=== PATIENT | female | born 1950 | race Caucasian/White ===

== ENCOUNTER 2018-06-07 13:45 | Day surgery (SDC) | payer OTHER, SELFPAY ==
[2018-05-26 16:17] VITALS: BMI 22.9
[2018-06-07] VITALS (12 sets, daily range): BP systolic 145–189; BP diastolic 72–98; PULSE 75–110; RESP 10–18; TEMP 36.4–37.3; O2SAT 95–100; BMI 22.9
--- NOTE | 2018-06-07 | DI.RAD.S_ITS ---
PROCEDURE: XR LUMBAR SPINE 2-3V INDICATIONS: L3-4, L4-5 MICRODISCECTOMY TECHNIQUE: 2 intraoperative fluoroscopic views of the lumbar spine were acquired. COMPARISON: None. FINDINGS: Intraoperative fluoroscopic images of lower lumbar spine shows surgical instrument placed posteriorly at L3-4 and L4-5 levels. IMPRESSION: Fluoroscopy guidance was provided intraoperatively for L3-4 and L4-5 microdiscectomy. Dictated by: Jovon Box M.D. on 06/07/2018 at 18:06 Approved by: Jovon Box M.D. on 06/07/2018 at 18:11
--- NOTE | 2018-06-07 16:03 | PM.PREOP ---
Pre-operative Note Interval Note Pre-op Check: Yes History & Physical Reviewed by Physician, Yes Exam Performed and Yes History & Physical exam performed today by Physician Changes: No
[2018-06-07] MEDS: LACTATED RINGERS 1,000 ML 42 ML IV (16:15)
--- NOTE | 2018-06-07 16:31 | SUR.PREOP ---
ancef 2 grams not given as ordered, 1 gram to be given per verbal order dr. pizano
[2018-06-07] MEDS: CEFAZOLIN 1 GM VIAL IV (16:43)
--- NOTE | 2018-06-07 17:05 | SUR.OPER ---
Prone on spine table, head in foam head support, padded chest and pelvic supports, gel pad at knees, lower legs supported by pillows; nipples, genitalia and toes free of pressure, arms secured on foam padded arm boards at <90 degrees abduction. Tape over blanket at thigh secured to table.
[2018-06-07] MEDS: BUPIVACAINE 0.25% W/ EPI VIAL 50 ML INJ (17:16)
[2018-06-07] MEDS: methylPREDNISolone acet DEPO 40 MG/ML VIAL INJ (17:17)
--- NOTE | 2018-06-07 17:42 | P.OP_ITS ---
Operative Date/Time/Diagnoses Date of procedure: 06/07/18 Time of procedure: 16:19 Pre-op diagnosis: 1. L3-4, L4-5 spinal stenosis 2. L3-4, L4-5 spondylosis with radiculopathy Post-op diagnosis: same Procedure & Clinicians Procedure: 1. L3-4 laminectomy with partial facetcomies 2. L4-5 hemilaminectomy 3. Utilization of microsurgical technique and operating microscope Same procedure as scheduled: Yes Indications: Patient has been having chronic back pain and worsening lumbar radiculopathy. Patient failed multiple conservative management with worsening pain weakness and numbness in her lower extremity. Patient has been having difficulty performing activity of daily living. After discussing risks benefits of treatment options, patient elected proceed with surgery. Surgeon: Sheng Harman [employer] Manager: Christina Pal Click Yes if Unassisted: No Anesthesia Type: General Operative Notes Closure Type: primary Specimen(s): none sent Estimated Blood Loss (mL): 5 Blood products transfused: none Procedure in detail: Patient was seen in the preoperative area. Risks and benefits of the surgery was discussed with the patient. Informed consent was obtained from the patient and placed in the chart. Surgical site was marked. Patient was taken to the operative room. General anesthesia was administered. Prophylactic antibiotic was given to the patient less than 30 min before the incision was made. Patient was placed into a prone position on the Janes table. Patient's back was then prepped and draped in the sterile fashion. Time- out was performed at this time. Using AP and lateral C-arm imaging the interval between L3-4 L4-5 was identified and marked on patient's back. A 1 inch incision 1 in from midline was made on the left side. The fascia was incised in line with skin incision. Globus MARS retractors was placed inside the incision and docked onto the L3 lamina. Using microsurgical technique and operating microscope, a L3-4 laminectomy was performed using a Kerrison rongeur. Liagamentum flavum was resected at the site of the laminectomy. Either side of the dura was exposed. Bilateral partial facetcomies was performed to further decompress the lateral recess. The MARS retractor was redirected to the L4 lamina. Using microsurgical technique and operating microscope, a L4 hemilaminectomy was performed on the left side using Kerrison rongeur. The lateral recess and neural foramen was fully decompressed by removing scar tissue bone spur and ligamentum flavum. After the laminectomy and hemilaminectomy was completed, the area medial lateral superior and inferior to the area of the laminectomy was inspected and explored using a micro curette. No other impinging structure was identified. The wound was then irrigated with sterile normal saline. 40 mg Depo-Medrol was placed into the epidural space. The deep fascia was closed with 1-0 Vicryl. The subcutaneous tissue was closed with 2-0 Vicryl. The skin was closed with 4- 0 Monocryl. Patient tolerated the procedure well. There were no complications. Patient was transferred recovery room in stable condition. Complications: none Condition: stable Disposition: same day surgery Plan for aftercare: Discharge to home
[2018-06-07] MEDS: LABETALOL 20 MG/4 ML SYRINGE 5 MG IV ×2 (17:45→17:55)
--- NOTE | 2018-06-07 18:04 | SUR.PHASEI ---
patient anxious because of her restless leg twitching. will ask anethesia for anxiety med. she has had 2 doses of labetolol and BP still high 188/96. HR has come down [id number] to [id number].
== END 2018-06-07 19:06 | disposition home or self-care (01) ==
PROVIDERS: Family Provider Family Medicine; PCP Family Medicine; Visit Provider Orthopaedic Surgery Orthopaedic Surgery of the Spine
PROC: (CPT 63047; principal; 2018-06-07 15:45)
DX: M48.061 Spinal stenosis, lumbar region without neurogenic claudication (principal); M47.26 Other spondylosis with radiculopathy, lumbar region; M19.90 Unspecified osteoarthritis, unspecified site; I10 Essential (primary) hypertension; E78.5 Hyperlipidemia, unspecified; D64.9 Anemia, unspecified; Z87.891 Personal history of nicotine dependence; E87.1 Hypo-osmolality and hyponatremia
CPT/HCPCS: 63047; 63030; 72100; 76001; J0330; J0690; J1030; J1100; J2405; J2704; J3010

== ENCOUNTER 2018-08-30 10:12 | Inpatient (IN) | payer OTHER, SELFPAY ==
[2018-08-16 09:30] VITALS: BMI 22.4
[2018-08-30] VITALS (15 sets, daily range): BP systolic 90–178; BP diastolic 51–90; PULSE 64–88; RESP 10–20; TEMP 36.2–36.7; O2SAT 95–100; BMI 22.4
--- NOTE | 2018-08-30 06:00 | DI.RAD.S_ITS ---
PROCEDURE: XR SHOULDER RT MIN 2V INDICATIONS: prosthesis placement TECHNIQUE: Single frontal view of the shoulder was acquired. COMPARISON: [facility] [place], CR, XR SHOULDER MIN 2VW RT, 06/04/2016, 14:32. FINDINGS: Bones: No fractures or dislocations, and there has been placement of a right total shoulder arthroplasty with surgical drain overlying the operative bed. No suspicious bony lesions. Visualized ribs appear intact. Soft tissues: No suspicious soft tissue calcifications. IMPRESSION: Normal alignment after right total shoulder arthroplasty, no operative complication present. Dictated by: Rafy Rodriguez M.D. on 08/30/2018 at 15:18 Approved by: Rafy Rodriguez M.D. on 08/30/2018 at 15:19
[2018-08-30] MEDS: LACTATED RINGERS 1,000 ML 42 ML IV ×2 (10:57→14:31)
[2018-08-30] MEDS: ACETAMINOPHEN 325 MG TABLET 975 MG PO ×3 (11:03→20:33)
[2018-08-30] MEDS: PREGABALIN 75 MG CAPSULE PO (11:04)
--- NOTE | 2018-08-30 11:54 | PM.PREOP ---
Pre-operative Note Interval Note History & Physical reviewed/Exam performed by Physician: Yes Changes to H&P: No
--- NOTE | 2018-08-30 11:54 | SUR.PREOP ---
Block start time [1147 . Monitoring initiated and maintained throughout procedure. Oxygen and medications given per anesthesiologist instructions. Patient remained stable throughout procedure, no adverse reactions noted. Block end time [1152].
--- NOTE | 2018-08-30 11:55 | SUR.PREOP ---
pt has abrasion on left knee, dr hernandez looked at abrasion stated ok to proceed with surgery , bandaid on left knee
[2018-08-30] MEDS: CEFAZOLIN 1 GM/50 ML FROZ.PIGGY IV (12:05)
--- NOTE | 2018-08-30 12:08 | PM.OP.1 ---
Operative Date/Time/Diagnoses Date of procedure: 08/30/18 Time of procedure: 13:50 Pre-op diagnosis: Right shoulder rotator cuff arthropathy Post-op diagnosis: same Procedure & Clinicians Procedure: Right reverse total shoulder replacement Same procedure as scheduled: Yes Indications: The patient is had chronic right shoulder pain unresponsive to nonoperative therapies. Radiographic studies have revealed changes consistent with a massive rotator cuff tear and arthritis. They have elected to proceed with reverse total shoulder replacement after discussion of the risks benefits and alternatives. Risks discussed included but were not limited to: Failure to improve, instability, infection, nerve damage, deep venous thrombosis, pulmonary embolism, stroke, coma, myocardial infarction and . Surgeon: Chuy Lopez Concrete Wall Grinder Operator: Julio Cesar Sun Click Yes if Unassisted: No Anesthesia Type: General, Peripheral nerve block and Local Operative Notes Findings: Massive tear of the supraspinatus and infraspinatus tendons with superior subluxation of the humeral head. Intact subscapularis. Closure Type: primary Specimen(s): none sent Implants & Drains: Implants used in this procedure were manufactured by the [employer] and included an RSP reverse total shoulder system with a size 10 mm standard length humeral stem, a 32 mm +4 standard humeral socket insert, a standard 30 mm screw length RSP glenoid base plate, a 32 mm neutral glenoid head with retaining screw, and 4 locking screws measuring 18, 22, 14 and 14 mm in length. Applied: drain(s) and implant(s) Estimated Blood Loss (mL): 200 Blood products transfused: none Procedure in detail: The patient was seen in the preoperative area where they identified the right shoulder as the operative site and this was marked with my initials. He received preoperative antibiotics and underwent the induction of an interscalene block. They were taken to the operating room and placed on the operating room table in a supine position with the underwent the induction of a general anesthetic. There were then repositioned in the ?beach chair? position using a dedicated positioner. All pressure points were well padded. The knees were slightly bent to prevent tension on the sciatic nerves. The right arm was prepared from the fingertips to the base of the neck with ChloraPrep in the usual fashion and draped through sterile drapes. An approximately 15 cm incision was created starting at the clavicle just above the coracoid and going to the deltoid insertion. The deltopectoral interval was used to access the shoulder taking the vein to the medial side. The vein was protected throughout the case. The upper 1 cm of the pectoralis major was released. The biceps tendon was identified and used as a guide to releasing the remaining subscapularis. The biceps itself was tenodesed over the pectoralis tendon using a suture. The subscapularis was tagged for later repair. The shoulder was dislocated and a proximal humeral osteotomy performed using an extramedullary guide. A proximal humeral protector was then placed. Retractors were placed access the glenoid. A 360 degree release was performed of the remaining subscapularis with care being taken to protect the axillary nerve. The soft tissues were removed circumferentially around the glenoid. The guide was used to drill the guide hole in the center of the inferior glenoid. The tap was placed and used as a guide for the reamer. The tap was then removed and the glenoid base plate inserted. The peripheral locking screws were then placed through the appropriate guide. A trial glenoid head was applied. We then turned our attention to the humerus. The proximal humeral protector was removed. Cylindrical reamers were used to size the canal. Broaching was then performed beginning with a small broach and working up until a line to line fit with the reamer was obtained. The guide for the proximal metaphyseal reamer was then applied and the metaphysis was reamed appropriately. The trial metaphyseal portion of the body was then applied to the broach. Trial reductions were performed and the size of the glenoid head and the cup were optimized. Stability was checked in maximal internal and external rotation and range of motion was checked to allow access to the top of the head, internal rotation to an excess of 50? in the ?scarecrow position? and the ability to reach the groin. The appropriate final prosthetic components were then opened. The glenoid head was impacted into position and checked for rotational and axial stability before placing the set screw. Drill holes for repair of the subscapularis were performed and sutures placed. The humeral prosthetic was then impacted into position. The humeral cup was placed. The joint was relocated and irrigated. The subscapularis was repaired to the previously placed sutures. A deep drain was placed. The deltopectoral interval was reapproximated with 0 Vicryl. Subcutaneous layer was closed with interrupted 3-0 Vicryl and skin with a running 3 0 V lock suture. Subcutaneous tissues were then infiltrated with 0.5% Marcaine for postoperative pain control. An Aquacel Ag dressing was applied and the patient's arm was placed in a sling. The patient was then transferred to the recovery room in good condition having tolerated the procedure well. Complications: none Condition: stable Disposition: PACU Plan for aftercare: The patient will be maintained in a sling for the 1st 6 weeks postoperatively. She will be allowed to do pendulum exercises but no other physical therapy.
--- NOTE | 2018-08-30 12:40 | SUR.OPER ---
Beach chair with Wai/Geraldo shoulder positioner. Lower body on padded OR bed. Head in foam padded head cradle, secured with straps. Non-operative arm secured <90 degrees abduction. Pillow under knees. Safety belt at thigh. Cloth tape over blanket over lower legs.
--- NOTE | 2018-08-30 13:37 | PM.PROC.1 ---
Procedures Date/Time Date of procedure: 08/30/18 Time of procedure: 11:39 General Procedure description: Ultrasound guided interscalene brachial plexus nerve block for post op pain control after right reverse total shoulder arthroplasty by Dr. Lopez. Risk and benefits of procedure discussed with patient. ASA monitoring applied to patient. O2 given via nasal cannula. 0.5 mg Versed and 25 mcg fentanyl given for procedural sedation. Skin site was prepped with chlorhexidine and allowed to fully dry. Sterile gloves, mask, hat and probe cover were used to maintain sterility. 2% lidocaine and 30ga needle was used to make a small skin wheal at needle insertion site. Under ultrasound guidance, a 21ga 50mm Pajunk needle was directed into the interscalene groove (middle/anterior scalenes) near the brachial plexus. Patient reported no parasthesias. After negative aspiration, 20 mL 0.5% ropivicaine and 10mg dexamethasone were injected around brachial plexus. Patient tolerated procedure well.
--- NOTE | 2018-08-30 13:40 | P.PCN_ITS ---
Procedures Date/Time Date of procedure: 08/30/18 Time of procedure: 11:39 General Procedure description: Ultrasound guided interscalene brachial plexus nerve block for post op pain control after right reverse total shoulder arthroplasty by Dr. Lopez. Risk and benefits of procedure discussed with patient. ASA monitoring applied to patient. O2 given via nasal cannula. 0.5 mg Versed and 25 mcg fentanyl given for procedural sedation. Skin site was prepped with chlorhexidine and allowed to fully dry. Sterile gloves, mask, hat and probe cover were used to maintain sterility. 2% lidocaine and 30ga needle was used to make a small skin wheal at needle insertion site. Under ultrasound guidance, a 21ga 50mm Pajunk needle was directed into the interscalene groove (middle/ anterior scalenes) near the brachial plexus. Patient reported no parasthesias. After negative aspiration, 20 mL 0.5% ropivicaine and 10mg dexamethasone were injected around brachial plexus. Patient tolerated procedure well.
[2018-08-30] MEDS: BUPIVACAINE 0.5% W/ EPI (PF) VIAL 30 ML INJ (13:50)
--- NOTE | 2018-08-30 14:26 | SUR.PHASEI ---
Report given to Bernardino POWELL and Nirmala RN regarding this pt.
--- NOTE | 2018-08-30 15:52 | SUR.PHASEI ---
Patient transported to room 205 via patient bed. Report given to Alisa Cline RN. Vital signs stable. Dressings intact. No complaints of pain. Tolerating PO without nausea or vomiting. Pt. Stable.
--- NOTE | 2018-08-30 16:18 | PC.NURSE ---
Charito shift note: Patient returned from PACU, awake, alert and calm. No c/o pain, discomfort or nausea. Tolerating PO intake. CMS intact to RUE. RUE secured with sling, anterior shoulder aquacel CDI, ice pack in place. Updated regarding post op plan of care. Call light within reach.
[2018-08-30] MEDS: LACTATED RINGERS 1,000 ML 125 ML IV (16:36)
[2018-08-30] MEDS: ROPINIROLE 0.25 MG TABLET 0.5 MG PO ×2 (16:37→20:37)
[2018-08-30] MEDS: CEFAZOLIN 2 GM/100 ML FROZ.PIGGY IV (20:05)
[2018-08-30] MEDS: ASPIRIN EC 81 MG TABLET PO (20:34)
[2018-08-30] MEDS: DOCUSATE 100 MG CAPSULE PO (20:34)
[2018-08-31] MEDS: NAPROXEN 250 MG TABLET 500 MG PO ×2 (02:14→10:53)
[2018-08-31] MEDS: HYDROMORPHONE 0.5 MG INJ IV (02:33)
[2018-08-31] MEDS: CEFAZOLIN 2 GM/100 ML FROZ.PIGGY IV (04:11)
[2018-08-31 04:41] VITALS: BP 133/62; PULSE 72; RESP 18; TEMP 36.6; O2SAT 97
[2018-08-31] MEDS: PANTOPRAZOLE 20 MG TABLET PO (05:56)
[2018-08-31 07:03] LABS: Hematocrit 30.8 % (36-46); Hemoglobin 10.5 g/dL (12.0-16.0); Mean Corpuscular HGB Conc 34.1 % (30-36); Mean Corpuscular Hemoglobin 31.8 PG (26-34); Mean Corpuscular Volume 93.2 fL (80-100); Platelet Count 411 X10^3/uL (150-400); Red Blood Cell Count 3.31 X10^6/uL (4.0-5.2); Red Cell Distribution Width 12.6 % (11.6-14.8); White Blood Cell Count 12.6 X10^3/uL (4.5-11.0)
[2018-08-31 07:47] VITALS: BP 143/74; PULSE 66; RESP 18; TEMP 36.7; O2SAT 98
--- NOTE | 2018-08-31 07:52 | PM.DS.1 ---
History of Present Illness Date Patient Seen: 08/31/18 Time Patient Seen: 07:52 Chief complaint: 35821 Shoulder Arthroplasty Narrative: History and physical is contained in the chart previously completed note. Please refer to this note for this information. Discharge Providers Date of admission: 08/30/18 10:12 Primary care physician: Salvatore Sahu MD Consults: 08/30/18 15:55 Consult to Discharge Planning Routine Comment: Consult to Physical Therapy Evaluate & Treat Comment: Physician Instructions: Evaluate and Treat Discharge provider: Chuy Lopez MD Discharge Date: 08/31/18 Summary Discharge Diagnosis: 1. Right shoulder rotator cuff tear arthropathy 2. Acute post hemorrhagic anemia Hospital Course: The patient was admitted to the hospital and taken directly to the operating room August 30, 2018 where she underwent a right reverse total shoulder replacement without complication. She was felt to be stable for discharge on postoperative day 1. Status at Discharge Cognitive/behavioral status at discharge: Baseline Functional status at discharge: independent ambulation Overall status at discharge: patient is progressing back to baseline Time Spent with Patient Less than 30 minutes Exam Vital Signs (past 8 hours): - 08/31/18 04:41 08/31/18 07:47 Temperature 97.9 F 98.1 F Pulse Rate 72 66 Respiratory Rate 18 18 Blood Pressure 133/62 143/74 H Pulse Oximetry 97 98 Oxygen Delivery Method Room Air Oxygen Flow Rate 0 Narrative Exam Narrative: Right shoulder wound is dressed with no drainage on the bandage. Light touch is intact in the radial, ulnar, median, muscular cutaneous and axillary nerve distribution. She can extend her thumb, abduct her thumb, abduct her fingers and is able to fire her biceps and deltoid. Objective Labs Result Diagrams: 08/31/18 06:45 Labs: Laboratory Results - last 24 hr 08/31/18 06:45 WBC 12.6 H RBC 3.31 L Hgb 10.5 L Hct 30.8 L MCV 93.2 MCH 31.8 MCHC 34.1 RDW 12.6 Plt Count 411 H Discharge Plan Discharge Plan Patient Disposition: Home Discharge Med Rec/Prescriptions Prescriptions: New hydrocodone-acetaminophen 5-325 mg Tablet 1 tab PO Q4HR PRN (Reason: Pain, Moderate (4-6)) Qty: 40 RF: 0 Continue multivitamin Tablet 1 tab PO DAILY RF: 0 tolterodine 2 mg Capsule,Extended Release 24hr 2 mg PO DAILY RF: 0 lovastatin 40 mg Tablet 40 mg PO DAILY RF: 0 chlorthalidone 50 mg Tablet 1 tab PO DAILY RF: 0 conjugated estrogens 0.625 mg/gram Cream See Label Instructions .ROUTE .COMPLEX Qty: 0 RF: 0 magnesium 250 mg Tablet 250 mg PO DAILY Qty: 0 RF: 0 calcium carbonate-vitamin D3 600 mg(1,500mg) -400 unit Tablet 1 tab PO DAILY RF: 0 naproxen 500 mg Tablet 500 mg PO BID PRN (Reason: pain) RF: 0 cyclobenzaprine 10 mg Tablet 5 - 10 mg PO TID PRN (Reason: Neck stiffness) RF: 0 ferrous sulfate 325 mg (65 mg iron) Tablet 325 mg PO DAILY RF: 0 cranberry 400 mg Capsule PO DAILY RF: 0 cholecalciferol (vitamin D3) [Vitamin D3] 2,000 unit Capsule 2,000 unit PO DAILY RF: 0 krill oil 500 mg Capsule 500 mg PO DAILY RF: 0 ropinirole 0.5 mg Tablet 0.5 mg PO TID RF: 0 omeprazole 20 mg Capsule,Delayed Release(Dr/Ec) 20 mg PO DAILY RF: 0 turmeric 400 mg Capsule 1,000 mg PO DAILY RF: 0 lisinopril 10 mg Tablet 10 mg PO DAILY RF: 0 Follow up/Referrals: Chuy Lopez MD [Physician] - 2 Weeks Provider Discharge Instructions Diet: Diet as Tolerated Activity: Wear sling for 6 weeks. You may do pendulum exercises and use your hand in front of your torso. Cold/Heat Therapy: Apply ice for 15 min of every hour to right shoulder as needed. Skin/Wound/Dressing Care Report to your healthcare provider any signs of infection, such as:: chills, fever, night sweats, increased pain, unusual drainage and unusual redness Dressing: Nikolas or dressing intact until follow-up. You may shower with the dressing in place but do not immerse the dressing under water. If the central strip of the dressing becomes saturated with either water or blood call the office to have it changed. Discharge Data Primary Care Provider: Salvatore Sahu Attending Provider: Chuy Lopez Admit Date/Time: 08/30/18 10:12
[2018-08-31] MEDS: HYDROCODONE/ACET 5/325 TABLET 1 TAB PO (08:00)
[2018-08-31] MEDS: CHOLECALCIFEROL (VITAMIN D3) 1,000 UNIT TABLET 2000 UNIT PO (08:01)
[2018-08-31] MEDS: ASPIRIN EC 81 MG TABLET PO (08:01)
[2018-08-31] MEDS: FERROUS SULFATE 325 MG TABLET PO (08:02)
[2018-08-31] MEDS: DOCUSATE 100 MG CAPSULE PO (08:02)
[2018-08-31] MEDS: LISINOPRIL 10 MG TABLET PO (08:02)
[2018-08-31] MEDS: CHLORTHALIDONE 25 MG TABLET 50 MG PO (08:02)
[2018-08-31] MEDS: MULTIVITAMIN 1 TABLET 1 TAB PO (08:03)
[2018-08-31] MEDS: LOVASTATIN 20 MG TABLET 40 MG PO (08:03)
[2018-08-31] MEDS: POLYETHYLENE GLYCOL 3350 17 GM POWD.PACK PO (08:04)
[2018-08-31] MEDS: ROPINIROLE 0.25 MG TABLET 0.5 MG PO (08:04)
--- NOTE | 2018-08-31 09:40 | PT.IIE ---
Current Diagnoses Other specific arthropathies, not elsewhere classified, right shoulder (08/30/18) Surgery Performed Operation Date: 08/30/18 12:00 Actual Procedures p Total Shoulder Arthroplasty - Reverse(Right) - Chuy Lopez MD Surgical History (Last Updated 08/16/18 @ 11:14 by Carla Sneed, RN) H/O excision of ganglion cyst (Acute) History of appendectomy (Acute) History of bilateral tubal ligation (Acute) History of colonoscopy (Acute ~2016) History of colonoscopy with polypectomy (Acute) History of esophagogastroduodenoscopy (EGD) (Acute) History of laminectomy (Acute) History of tonsillectomy (Acute) S/P left rotator cuff repair (Acute) Medical History (Last Updated 08/16/18 @ 12:04 by Carla Sneed, RN) Abnormal EKG (Acute ~05/27/18) Anemia (Acute) Barretts esophagus (Acute) Basal cell carcinoma (Acute) Blunt head trauma (Acute ~03/31/18) Calcifying tendinitis of shoulder (Acute) GERD (gastroesophageal reflux disease) (Acute) History of hysterectomy (Acute) Hyperlipidemia (Acute) Hypertension (Acute) Hyponatremia (Acute) Impacted cerumen (Acute) Joint pain (Acute) Myofascial pain dysfunction syndrome (Acute) Osteoarthritis (Acute) Osteoarthritis of spine with radiculopathy, lumbar region (Acute) Osteopenia (Acute) Postoperative intra-abdominal abscess (Acute ~1996) Restless leg syndrome (Acute) Rheumatic fever (Acute ~1952) Rotator cuff arthropathy of right shoulder (Acute) Sacral fracture (Acute) Seasonal allergies (Acute) Spinal stenosis (Acute) Spondylosis (Acute) Vertigo (Acute ~08/13/18) Physical Therapy Inpatient Evaluation/Re-Eval M1 PT/OT-IP Prior Functional Status Start: 08/31/18 10:14 Freq: NEEDED Status: Active Protocol: Document 08/31/18 09:40 AB (Rec: 08/31/18 10:31 AB [id number]) Medical Review Prior Functional Status Medical History Reviewed Yes Communication able to make needs known Mobility and Gait stated that she is independent with all mobilities and ambulation without AD Social History Household Members none Living Arrangements House Number of Floors (Floors) One Floor Number of Stairs To Enter/Railing? no steps to enter; lives in a senior 55[facility]community Home Environment High Toilet Walk in Shower Built-In Shower Seat Home Equipment Hand Held Shower Grab Bars Near Toilet Grab Bars In Shower Additional Social History Comment stated that her aunt lives 2 houses away and can assist her if needed stated that she usually sleeps with head elevated by pillows M2 PT-IP Current Condition Start: 08/31/18 10:14 Freq: NEEDED Status: Active Protocol: Document 08/31/18 09:40 AB (Rec: 08/31/18 10:31 AB [id number]) Physical Therapy Current Condition Current Condition Evaluation Date 08/31/18 Treatment Diagnosis s/p R reverse TSA; difficulty in walking Onset Date 08/30/18 Precautions Shoulder Precautions Sling Internal Rotation to Body No External Rotation No Abduction Forward Flexion to 90 degrees Pendulums Brace sling Other Precautions per doctor's order: allowed to do pendulums but no other exercises on R shoulder Weight Bearing Status Weight Bearing Status Non-Weight Bearing Allowed Weight Bearing Amount (enter % RUE NWB or #) (%) M3 PT-IP Subjective Start: 08/31/18 10:14 Freq: NEEDED Status: Active Protocol: Document 08/31/18 09:40 AB (Rec: 08/31/18 10:31 AB [id number]) Subjective Physical Therapy Visit Type Type Initial Evaluation Visit Start Time 09:40 Visit Stop Time 10:10 Total Visit Minutes 30 Number of ENTRY LEVEL RECRUITER Visits 0 Physical Therapy Visit Comments Patient Comments pt agreeable to do PT Therapy Pain Assessment Pain When Pain Assessed At Rest Pain Present Pain Present Pain Reported Location Right Shoulder Intensity 5 Scale Used Numeric (1 - 10) Pain Management Techniques Re-positioning Timing of Activity with Medications M4 PT-IP Mobility and Gait Start: 08/31/18 10:14 Freq: NEEDED Status: Active Protocol: Document 08/31/18 09:40 AB (Rec: 08/31/18 10:31 AB [id number]) PT-Bed Mobility Assessment Supine to Sit Supine to Sit Independent Head of Bed Elevated PT-Transfer Assessment Sit to and From Stand Sit to and from Stand Independent Equipment Transfer Assistive Device None Gait Belt Orthotic/Prosthetic Devices or Brace: Yes Transfers Transfer Destination Toilet Transfer Technique pt ambulated to the toilet without AD Transfer Ability Level of Assist Standby Assistance Gait Assessment Gait Gait Assistance Required: Standby Assistance Distance (Feet) 200 Able to Maintain Weight Bearing Status Yes During Gait Assistive Devices Assistive Device None Gait Belt Orthotic/Prosthetic Devices or Brace: Yes Gait Deviations General Gait Pattern Antalgic Decreased Stride Length Decreased Feet Clearance Factors Limiting Gait Function Factors Limiting Gait Function Decreased Strength Limited Range of Motion Pain Comments Gait Comments has R sling on; presents with antalgic gait; pt stated that she has a bad hip PT-Balance Assessment Sitting Balance and Reactions Static Sitting Balance Ability Good Dynamic Sitting Balance Ability Good Standing Balance and Reactions Static Standing Balance Ability Good Dynamic Standing Balance Ability Fair Device Used without AD M5 PT-IP Objective Assessments Start: 08/31/18 10:14 Freq: NEEDED Status: Active Protocol: Document 08/31/18 09:40 AB (Rec: 08/31/18 10:31 AB [id number]) Orientation Orientation/Cognition Level of Alertness Alert Orientation Name Age Birthday Month Date Year Day of Week Place Situation Safety Awareness Understands Safety Issues Memory Description No Deficits Noted Gross Range of Motion Upper Extremity ROM Assessment Right Impaired Impairments RUE with precautions Lower Extremity ROM Assessment Within Functional Limits Strength Lower Extremity Strength Assessment Within Functional Limits Sensation Assessment Sensation Gross Sensation WNL Muscle Tone Muscle Tone WNL Yes M6 PT-IP Treatment Start: 08/31/18 10:14 Freq: NEEDED Status: Active Protocol: Document 08/31/18 09:40 AB (Rec: 08/31/18 10:31 AB [id number]) Physical Therapy Treatment Education Education Provided Precautions Weight Bearing Status Post-Op Packet Safety Brace Education Donning Patient Other Treatments Other Treatment Performed Pt education conducted for sling management attemped pendulum exercises but pt unable to fully relax RUE and educated on precautions; informed pt to just dangle RUE for ADLs but not do pendulums if unable to relax RUE; pt understood M7 PT-IP Assessment and Plan Start: 08/31/18 10:14 Freq: NEEDED Status: Active Protocol: Document 08/31/18 09:40 AB (Rec: 08/31/18 10:31 AB [id number]) PT Summary Assessment and Plan Potential Rehabilitation Potential Good Status of Condition at Evaluation Stable Summary Impairments Pain ROM Strength Balance Coordination Sensation Transfers Gait Activity Tolerance Assessment Summary pt requiring SBA with mobility . pt stated that her aunt can assist her if needed. Pt may go home when medically stable . Goals Transfer Goal Independent Gait Goal Independent Gait Distance 300 Days to Meet Goals 2 Frequency of Treatment Frequency Of Treatment Twice a Day Treatment Plan Physical Therapy Treatment Plan Bed Mobility Training Transfer Training Gait Training Therapeutic Exercise Balance Retraining Post Op Education Discharge Planning Hot or Cold Pack Neuromuscular Re-ed Coordination Retraining Manual Therapy Other Recommendations and Next Treatment ambulation Focus Recommendations To Nursing Amount of Assist Needed Standby Assistance Discharge Recommendations PT Discharge Recommendations Home with Assistance Outpatient PT
[2018-08-31] MEDS: CYCLOBENZAPRINE 10 MG TABLET 5 MG PO (10:54)
--- NOTE | 2018-08-31 11:17 | PC.NURSE ---
Discharge Pt states pain decreased with [place]. Did give pt naproxen and flexeril prior to d/c to help with pain for car ride home as well. PIV removed prior to d/c. d/c instructions provided to pt and family member. notified to contact MD with any additional questions or concerns as well as that she has f/u apt already scheduled. Hemovac removed without issue per MD orders. Pt had R arm in sling per MD orders. left in w/c to private vehicle for d/c.
--- NOTE | 2018-08-31 13:04 | CM.DANOTE ---
DCP/Assessment: Reviewed chart. Patient is a 68yr old female admitted to [facility] for right TSA performed on 08-30-[address] Lopez. PCP is Dr. Sahu. Primary payor is 1)[employer] [facility]. Met with patient explained CM/SW role. Patient reports that she plans to go home today. Patient denies any d/c planning needs. Patient was told by Orthopedics that she would not start outpatient therapy for a few weeks. F/U appointment with Orthopedics on 09-13-18. Patient reports that she has supportive family and neighbors nearby. Patient does not anticipate any d/c planning needs. P: Home today. TIMOTHY Bhatti Discharge Planning/Care Management Advanced directive, confirm from FAMILY Start: 08/30/18 16:32 Freq: Q24H Status: Discharge Protocol: Document 08/30/18 16:53 EM (Rec: 08/30/18 16:54 EM [id number]) Advance Directive, confirm on record Time 16:50 Person contacted Yosi Abraham Copy received Yes CM Discharge Assessment Start: 08/31/18 13:02 Freq: Status: Discharge Protocol: Document 08/31/18 13:02 KJS (Rec: 08/31/18 13:04 KJS [id number]) Discharge Planning Assessment Assigned Line Helper TIMOTHY Bhatti Contact Information Waleska Rosales (Aunt) Advance Directives? Yes Advance Directives on File Unsure History Provided By Patient Has Patient been admitted in last 30 No days? Prior Living Arrangements House Household Members none Type of transporation used prior to Drives own vehicle admit Independent with ADL's Yes Is patient alert and oriented? Yes Caregiver for Another No Barriers to Discharge No Discharge Plan Home Transportation Arrangement Family to provide transport. Referrals Initiated None needed Whiteboard Updated in Patient Room with Yes name and ext. # of Line Helper Review Status In Process Please Provide Date Initial DC 08/31/18 Assessment Was Performed Next Review Type Continued Stay Review Pre-Anesthesia Assessment Start: 08/16/18 09:30 Freq: Status: Discharge Protocol: Document 08/16/18 09:30 VLJ (Rec: 08/16/18 09:52 VLJ [id number]) Pre-Anesthesia Assessment Patient Also Known As (SANTA Abraham Patient Information Reviewed Via Chart Review Phone Assessment Assessment Completed With Patient Lab Results BMP/CMP CBC Primary Care Provider Salvatore Sahu Seen Specialist in Last 12 Months Yes Specialist Seen Emergency Orthopedist Primary Language Setswana Microsoft Access Developer Required No Height 162.56 cm Weight 59.421 kg Body Mass Index (BMI) 22.4 Hearing Ability Normal Visual Impairment No Limitations Dentition Type Teeth, Natural Present Barriers to Learning None Hx Anesthesia Reactions No Hx Family Anesthesia Reaction No Hx Malignant Hyperthermia No Hx Blood Transfusions No Hx Blood Transfusion Reaction No Anesthesia Review Requested No Multiple Drum Sander No alcohol intake current alcohol intake frequency 0-2 drinks per day Smoking Status Former smoker Tobacco type cigarettes Has it been 2 weeks or less since No patient quit smoking how long ago did patient quit smoking 1998 Smoking pack-years 8 Substance Use Type does not use Pain Present Pain Reported Comment Right shoulder Musculoskeletal Symptoms Arthralgias Joint Pain Joint Stiffness Joint Swelling History of Falling (Recent or History of Yes ) Patient is completely paralyzed or No completely immobile Ambulatory Aid None/bed rest/nurse assist Gait/Transferring Normal/bedrest/immobile Mental Status Oriented to own ability Comment Fell in shower Is patient on oxygen? No Does patient have HEART/SOB No Hx Sleep Apnea No CPAP/BIPAP use not prescribed Will Bring CPAP/BIPAP DOS No Currently Taking a Beta Edmundo No Can You Climb a Flight of Stairs Without Yes SOB Hx Chest Pain No Hx SOB No Hx Syncope or Dizziness Yes: ED work-up 08/13/18 negative Anti-Coagulant Therapy No Has a Research Greenhouse Supervisor No Cardiac Testing No Hx Pacemaker/ICD No Pacemaker Rep Required? No Cardiac Clearance Received Not Applicable Diet Type At Home Regular dysphagia No Bladder Pattern Frequency Nocturia Urgency Urinary Catheter Present No Hx Urinary Self Catheterization No Diabetes No Patient No Lactating No Hx Drug Resistant Organism No Presence of External or Internal Medical No Devices Have you traveled outside the [facility] in the last 30 days? Marital Status Single Lives With none Prior Living Arrangements House Number of Floors (Floors) One Floor Number of Stairs To Enter/Railing? no stairs Support System Family Sibling(s) Does the Patient Have Assistance After Yes Surgery Patient Discharge Plan Description Return Home Comment Aunt lives 2 door away; plans one night stay Feels Safe in Current Environment Yes Been Physically Hurt or Threatened By a No Person in Current Environment Do you have thoughts of harming yourself None or others? Are you currently considering suicide? No Do you have a plan to hurt yourself or No Plan others? Do You Have Any Spiritual Beliefs That No May Affect Your HC Choices? Do You Have Any Cultural Practices That No May Affect Your HC Choices? Spiritual Referral None Who Can We Speak to About Patient's Care Friends & Family Identifying Code for Release of Patient Declined Information Health Care Proxy/Next of Kin Waleska Rosales (Aunt) Health Care Proxy Emergency Contact Name Waleska Rosales (Aunt) Emergency Contact Advance Directives? Yes Advance Directives on File Unsure Requested Patient Bring Advanced Yes Directives DOS Power of Mill Tender Second Operator Yes Power of Mill Tender Second Operator Name Tremaine Rosales - brother Power of Mill Tender Second Operator PAC Instructions Assistance for 24 hours post- op Do not shave/clip surgical site Durable medical equipment Medications to take/avoid Nasal antibiotic No ETOH/petroleum product on skin DOS NPO Ortho class Post-op transportation Pre-op antibiotic Pre-surgical wash Sensory aids Sturdy shoes/comfortable clothes Do not bring valuables and remove jewelry
== END 2018-08-31 11:05 | disposition home or self-care (01) | DRG 483 ==
PROVIDERS: Admitting Provider Orthopaedic Surgery; Family Provider Family Medicine; PCP Family Medicine; Visit Provider Orthopaedic Surgery
PROC: 0RRJ00Z Replacement of Right Shoulder Joint with Reverse Ball and Socket Synthetic Substitute, Open Approach (ICD-10-PCS; CPT 23472; principal; 2018-08-30 12:00)
DX: M19.011 Primary osteoarthritis, right shoulder (principal); I10 Essential (primary) hypertension; K21.9 Gastro-esophageal reflux disease without esophagitis; E78.5 Hyperlipidemia, unspecified; Z87.891 Personal history of nicotine dependence; M75.101 Unspecified rotator cuff tear or rupture of right shoulder, not specified as traumatic; S43.001D Unspecified subluxation of right shoulder joint, subsequent encounter
CPT/HCPCS: 36415; 64450; 73020; 85027; 97161; C1776; J0690; J1100; J1170; J2250; J2405; J2704; J2795; J3010

== ENCOUNTER → 2019-05-20 15:41 | Outpatient (CLI) | payer OTHER, SELFPAY ==
[2018-08-30 16:26] VITALS: BMI 22.4
--- NOTE | 2019-05-20 | DI.MRI.S_ITS ---
PROCEDURE: MR THORACIC SPINE WO CON INDICATIONS: Decreased balance TECHNIQUE: Noncontrast sagittal T1 spine echo and T2 fast spin echo, sagittal STIR, axial T1 and T2 fast spin echo through the thoracic spine. COMPARISON: None. FINDINGS: Image quality: Excellent. Alignment and Curvature: There is normal bony alignment. Bone Marrow: Minimal reactive endplate change noted adjacent to the T6-T7, T7-T8, F7-K3-C0-T10, T10-T11, T11-T12 and T12-L1 disc. No acute vertebral body compression fractures. Spinal Cord: Visualized spinal cord is normal in size and signal. Paraspinous Soft Tissues: No paravertebral masses. Miscellaneous: Loss of disc signal noted throughout the thoracic spine. Loss of disc height noted in the T2-T3, TE 6-T7, T7-T8, T8-T9, T9-T10, T10-T11, T11-T12 and T12-L1 disc. Small central T10-T11 disc protrusion. No central stenosis. No neural foraminal narrowing. No neural compression. IMPRESSION: 1. Multilevel degenerative disc disease. 2. No central stenosis. 3. No neural foraminal narrowing. 4. No neural compression. 5. No vertebral body compression fractures. Dictated by: Sherri Shelton MD, PhD on 05/20/2019 at 17:08 Approved by: Sherri Shelton MD, PhD on 05/20/2019 at 17:11
--- NOTE | 2019-05-20 | DI.MRI.S_ITS ---
PROCEDURE: MR CERVICAL SPINE WO CON INDICATIONS: Decreased balance TECHNIQUE: Noncontrast sagittal T1 spin echo and T2 fast spin echo, sagittal STIR, foraminal oblique sagittal T2 fast spin echo, and axial gradient echo or T2 fast spin echo through the cervical spine. COMPARISON: None. FINDINGS: Image quality: Degraded by motion artifact in particular on the right side oblique T2 weighted pulse sequence.. Alignment and Curvature: Straightening of the normal lordotic curvature. Grade 1 anterolisthesis of C3 on C4 and C4 on C5. Grade 1 retrolisthesis of C5 on C6 Bone Marrow: Multilevel degenerative endplate sclerosis and spurring. Diffuse facet arthropathy. Spinal Cord: Visualized spinal cord has normal size and signal. No cerebellar tonsillar herniation. Paraspinous Soft Tissues: No paravertebral masses. Prevertebral soft tissues are normal in thickness. C2-C3: Normal appearance. C3-C4: No high-grade canal stenosis. Mild right foraminal narrowing with nerve root compression. Mild left foraminal narrowing without nerve root compression C4-C5: Minimal central canal narrowing. Mild to moderate right foraminal narrowing with minimal nerve root compression. Moderate left foraminal stenosis with nerve root compression C5-C6: Mild central canal narrowing with effacement of the anterior and posterior thecal sac. Severe right foraminal stenosis with nerve root compression. Severe left foraminal stenosis with neurocompression C6-C7: Mild central canal narrowing with effacement of the anterior and posterior thecal sac. Severe bilateral foraminal stenosis with nerve root compression C7-T1: No canal stenosis identified. No foraminal narrowing IMPRESSION: Diffuse cervical spondylosis and facet arthropathy as detailed above. Multilevel spondylolisthesis and retrolisthesis Mild central canal narrowing at C5-C6 and C6-C7. Diffuse bilateral foraminal stenoses, most severe at C5-C6 and C6-C7 bilaterally Dictated by: Everardo Schuster M.D. on 05/23/2019 at 8:40 Approved by: Everardo Schuster M.D. on 05/23/2019 at 8:46
== END ==
PROVIDERS: Family Provider Family Medicine; PCP Family Medicine; Visit Provider Psychiatry & Neurology Neurology
DX: M51.34 Other intervertebral disc degeneration, thoracic region (principal); R26.9 Unspecified abnormalities of gait and mobility; M47.812 Spondylosis without myelopathy or radiculopathy, cervical region; M48.02 Spinal stenosis, cervical region; M43.12 Spondylolisthesis, cervical region
CPT/HCPCS: 72141; 72146

== ENCOUNTER → 2020-02-19 10:11 | Outpatient (CLI) | payer OTHER, SELFPAY ==
[2018-08-30 16:26] VITALS: BMI 22.4
[2020-02-20 08:44] LABS: COVID19 Sendout Not Detected (Not Detect)
== END ==
PROVIDERS: Family Provider Family Medicine; PCP Family Medicine; Visit Provider Nurse Practitioner
DX: Z01.812 Encounter for preprocedural laboratory examination (principal)
CPT/HCPCS: 87635

== ENCOUNTER 2020-02-22 07:49 | Day surgery (SDC) | payer OTHER, SELFPAY ==
[2018-08-30 16:26] VITALS: BMI 22.4
[2020-02-20 14:39] VITALS: BMI 23.9
[2020-02-22] VITALS (13 sets, daily range): BP systolic 96–153; BP diastolic 50–76; PULSE 69–84; RESP 9–20; TEMP 35.7–36.8; O2SAT 95–100; BMI 23.4
--- NOTE | 2020-02-22 | DI.RAD.S_ITS ---
PROCEDURE: XR KNEE RT 1TO2V INDICATIONS: RIGHT TOTAL KNEE TECHNIQUE: A set of 2 views of the knee were acquired. COMPARISON: None. FINDINGS: Bones: No fractures or dislocations. No suspicious bony lesions. Soft tissues: No joint effusion. No suspicious soft tissue calcifications. IMPRESSION: Normal alignment after right total knee arthroplasty. Dictated by: Rafy Rodriguez M.D. on 02/22/2020 at 12:55 Approved by: Rafy Rodriguez M.D. on 02/22/2020 at 12:55
--- NOTE | 2020-02-22 08:27 | PM.PREOP ---
Pre-operative Note COVID-19 COVID-19 status: Negative Result date/Date tested (Pos, Neg/Pending): 02/20/20 Interval Note History & Physical reviewed/Exam performed by Physician: Yes Changes to H&P: No
--- NOTE | 2020-02-22 08:28 | P.OP_ITS ---
Operative Date/Time/Diagnoses Date of procedure: 02/22/20 Time of procedure: 11:13 Pre-op diagnosis: Right knee osteoarthritis Post-op diagnosis: same Procedure & Clinicians Procedure: Right total knee arthroplasty Same procedure as scheduled: Yes Indications: The patient presents today for total knee arthroplasty after failure of conservative treatment. The nature of the procedure including the risks and benefits, alternatives, postoperative course and expected outcome were discussed and all questions answered. Consent was obtained. Operative site confirmed and marked. Surgeon: Levon Hardy Weapons Engineer: Julio Cesar Sun Anesthesia Type: General and Spinal Operative Notes Findings: Patient's bone was quite soft. Standard cuts were made. The tibial cut took about 9 mm off the lateral side and 4 mm off the medial side. This was consistent with preoperative templating. The knee balanced well with just slight medial tightness in flexion and extension. This was mostly corrected wi th percutaneous release of the MCL with an 18 gauge needle. Patellar tracking was excellent. Closure Type: primary Specimen(s): none sent Prosthetic devices, grafts, tissues, transplants, or devices: [employer] Fco BCS: 5 femoral component, 3 tibial component, 9 mm BCS polyethylene tray and 32 x 7.5 mm round patella Applied: implant(s) Blood products transfused: none Tourniquet time (min): 60 Procedure in detail: The patient was taken to the operative suite and placed under anesthesia. The patient was given prophylactic antibiotics prior to surgery. The patient was also given tranexamic acid, 1 g, just prior to surgery for postoperative hemostasis. The lateral knee was prepped and the joint injected with 20 mL of 1% Lidocaine with epinephrine. The knee was then prepped and draped in usual sterile fashion. The leg was exsanguinated with an Esmarch dressing and the tourniquet raised to 250 torr. A 15 cm anterior incision was made. Next a medial trivector arthrotomy was made. The extensor mechanism was marked to ensure accurate repair. Initial exposing dissection was carried out medially and laterally. The knee was then flexed and the intramedullary femoral guide arun placed. The distal femoral cut was made in 6? of valgus at the +0 position. The femoral size was measured and the appropriate cutting block was then placed and the anterior, posterior and chamfer cuts made. The intramedullary tibial alignment arun was then placed. The guide was set to remove approximately 9 mm from the lateral side. The proximal tibial cut was then made with an oscillating saw. All meniscus and bony debris was then removed. Posterior femoral osteophytes removed with a curved osteotome. Flexion extension gaps were checked. The knee was slightly tight medially. This was corrected with percutaneous release of the MCL with an 18 gauge needle. The soft tissues were then injected with a combination of 20 mL of half percent Marcaine with epinephrine and 20 mL of Exparel. The trial components were then placed. The knee was then extended and the patellar thickness was measured and a cut made removing approximately 7-8 mm of bone. The patella was then sized and drilled. Some excess lateral bone was excised and the patellofemoral ligament released. The knee went into full extension and flexion beyond 130?. There was excellent medial-lateral balance throughout motion. Patellar tracking was excellent. The trial components were removed and the knee was cleansed with Pulsavac irrigation and dried. The final components were cemented with high viscosity vacuum mixed bone cement with antibiotics. The joint was filled with a dilute Betadine solution. The knee was held in extension and the patellar clamped until the cement was adequately cured. The knee was then irrigated. The extensor mechanism was closed with 5 interrupted #1 Vicryl sutures and a running Quill suture at approximately 90 degrees of flexion. The joint was then injected with a combination of 1 g of tranexamic acid and 20 mL of quarter percent Marcaine with epinephrine. The subcutaneous tissue was closed with 2 0 Vicryl. The skin was closed with absorbable subcuticular sutures and surgical adhesive. An Aquacel dressing and Jordan wrap were then applied. The patient tolerated the procedure well and was returned to recovery room in good condition. Complications: none Post-operative Condition: stable Disposition: PACU Plan for aftercare: [facility] Joint Care Protocol.
[2020-02-22] MEDS: LACTATED RINGERS 1,000 ML 42 ML IV (08:39)
[2020-02-22] MEDS: ACETAMINOPHEN 325 MG TABLET 975 MG PO (08:41)
[2020-02-22] MEDS: GABAPENTIN 300 MG CAPSULE PO (08:41)
[2020-02-22] MEDS: CEFAZOLIN 1 GM/50 ML FROZ.PIGGY IV (09:47)
[2020-02-22] MEDS: TRANEXAMIC ACID 1,000 MG VIAL 1000 MG IV (10:00)
--- NOTE | 2020-02-22 10:12 | SUR.OPER ---
Supine on padded OR bed. Pillow under head, arms secured on padded armboards <90 degree abduction. Safety belt across torso. Non-operative leg secured with tape over blanket over lower leg. Operative leg secured in DeMayo/Jose positioner. Foam padded brace at thigh of operative leg.
[2020-02-22] MEDS: LIDOCAINE 1% W/EPI 20 ML INJ (10:20)
[2020-02-22] MEDS: BUPIVACAINE 0.25% W/ EPI (PF) 40 ML, BUPIVACAINE LIPOSOME 266 MG, SODIUM CHLORIDE 0.9% ... INJ (10:21)
--- NOTE | 2020-02-22 10:32 | SUR.OPER ---
PATIENT GIVEN 10ML TRANEXAMIC ACID, 20ML 0.25% BUPIVICAINE WITH EPI, 10ML 0.9% SODIUM CHLORIDE INJECTION. UNABLE TO SCAN INTO THE MAR.
--- NOTE | 2020-02-22 11:58 | SUR.PHASEI ---
Report called to floor and given to SHERRY Castellano> Pt stable and drinking fluids without problems, denies pain or nausea.
[2020-02-22] MEDS: IBUPROFEN 400 MG TABLET PO ×3 (14:16→20:24)
[2020-02-22] MEDS: LACTATED RINGERS 1,000 ML 100 ML IV (14:18)
--- NOTE | 2020-02-22 14:49 | PT.IIE ---
Current Diagnoses Primary osteoarthritis, right shoulder (02/22/20) Presence of right artificial shoulder joint (02/22/20) Surgery Performed Operation Date: 02/22/20 09:45 Actual Procedures p Total Knee Arthroplasty(Right) - Levon Hardy MD Surgical History (Last Updated 08/16/18 @ 11:14 by Carla Sneed, RN) H/O excision of ganglion cyst (Acute) History of appendectomy (Acute) History of bilateral tubal ligation (Acute) History of colonoscopy (Acute ~2016) History of colonoscopy with polypectomy (Acute) History of esophagogastroduodenoscopy (EGD) (Acute) History of hysterectomy (Acute) History of laminectomy (Acute) History of tonsillectomy (Acute) S/P left rotator cuff repair (Acute) Medical History (Last Updated 08/16/18 @ 12:04 by Carla Sneed RN) Abnormal EKG (Acute ~05/27/18) Anemia (Acute) Barretts esophagus (Acute) Basal cell carcinoma (Acute) Blunt head trauma (Acute ~03/31/18) Calcifying tendinitis of shoulder (Acute) GERD (gastroesophageal reflux disease) (Acute) Hyperlipidemia (Acute) Hypertension (Acute) Hyponatremia (Acute) Impacted cerumen (Acute) Joint pain (Acute) Myofascial pain dysfunction syndrome (Acute) Osteoarthritis (Acute) Osteoarthritis of spine with radiculopathy, lumbar region (Acute) Osteopenia (Acute) Postoperative intra-abdominal abscess (Acute ~1996) Restless leg syndrome (Acute) Rheumatic fever (Acute ~1952) Rotator cuff arthropathy of right shoulder (Acute) Sacral fracture (Acute) Seasonal allergies (Acute) Spinal stenosis (Acute) Spondylosis (Acute) Vertigo (Acute ~08/13/18) Physical Therapy Inpatient Evaluation/Re-Eval M1 PT/OT-IP Prior Functional Status Start: 02/22/20 16:24 Freq: NEEDED Status: Active Protocol: Document 02/22/20 14:49 AB (Rec: 02/22/20 16:41 AB [id number]) Medical Review Prior Functional Status Medical History Reviewed Yes Communication able to make needs known Mobility and Gait pt stated that she is independent with all mobilities and ambulation without AD Social History Household Members none Living Arrangements House Number of Floors (Floors) One Floor Number of Stairs To Enter/Railing? no steps to enter Home Environment High Toilet,Walk in Shower, Built-In Shower Seat Home Equipment Front Wheel Walker,Straight Cane,Raised Toilet Seat w/ Armrests,Grab Bars In Shower Additional Social History Comment pt stated that her sister will stay with her for 2 days to assist her and afterwards, her aunt that lives [place] cover to her house can come in to assist her as needed. pt has a walk in tub shower with grab bars and PHYS ASST pt has an adjustable bed at home M2 PT-IP Current Condition Start: 02/22/20 16:24 Freq: NEEDED Status: Active Protocol: Document 02/22/20 14:49 AB (Rec: 02/22/20 16:41 AB [id number]) Physical Therapy Current Condition Current Condition Evaluation Date 02/22/20 Treatment Diagnosis s/p R TKA; difficulty in walking Onset Date Weight Bearing Status Weight Bearing Status Weight Bear as Tolerated Allowed Weight Bearing Amount (enter % RLE WBAT or #) (%) M3 PT-IP Subjective Start: 02/22/20 16:24 Freq: NEEDED Status: Active Protocol: Document 02/22/20 14:49 AB (Rec: 02/22/20 16:41 AB [id number]) Subjective Physical Therapy Visit Type Type Initial Evaluation Visit Start Time 14:49 Visit Stop Time 15:20 Total Visit Minutes 41 Number of FIELD CARE ADVOCATE Visits 0 Physical Therapy Visit Comments Patient Comments pt is agreeable to do PT and requested to use the toilet Therapy Pain Assessment Pain Present Pain Present Denied Pain M4 PT-IP Mobility and Gait Start: 02/22/20 16:24 Freq: NEEDED Status: Active Protocol: Document 02/22/20 14:49 AB (Rec: 02/22/20 16:41 AB [id number]) PT-Bed Mobility Assessment Supine to Sit Supine to Sit Standby Assistance Sit to Supine Sit to Supine Standby Assistance,Head of Bed Elevated Scooting Scooting to Edge of Bed Standby Assistance PT-Transfer Assessment Sit to and From Stand Sit to and from Stand Moderate Assistance,1 Person Assistance,Use of Upper Extremities Equipment Transfer Assistive Device Gait Belt,Front Wheeled Walker Orthotic/Prosthetic Devices or Brace: No Transfers Transfer Destination Bedside Commode Transfer Technique Stand Step Pivot Transfer Ability Level of Assist Moderate Assistance,1 Person Assistance,Use of Upper Extremities Comments Mobility Comments asked pt regarding sensation on BLE and stated that she can feel them and pt was able to move BLE during assessment. BP in bed supine: 128/70. pt completed supine to sit SBA with HOB elevated. pt has an adjustable bed at home. pt completed sit to stand mod A and cues. BP checked: 141/73. pt stated that she feels a little fuzzy. attempted to ambulate but after 1-2 steps, pt stated that she still cannot feel fully on her feet . instructed pt to sit down. placed bedside commode closer to pt. pt completed sit to stand mod A and cues and pt completed step transfer to the commode using FWW mod A and cues. pt completed sit to stand from bedside commode mod A and cues and transferred to the bed using FWW mod A and cues. c/o lightheadedness and pt assisted to sit back on bed. BP checked: 142/79. nurse wanted pt to stay seated on EOB. Left pt with nurse. call light placed next to pt. Gait Assessment Comments Gait Comments unable to complete ; attempted but unable due to decrease sensation on BLE PT-Balance Assessment Sitting Balance and Reactions Static Sitting Balance Ability Good Dynamic Sitting Balance Ability Good Standing Balance and Reactions Static Standing Balance Ability Fair Dynamic Standing Balance Ability Poor Device Used FWW M5 PT-IP Objective Assessments Start: 02/22/20 16:24 Freq: NEEDED Status: Active Protocol: Document 02/22/20 14:49 AB (Rec: 02/22/20 16:41 AB [id number]) Orientation Orientation/Cognition Level of Alertness Alert Orientation Place,Situation Safety Awareness Decreased Safety Awareness Gross Range of Motion Lower Extremity ROM Assessment Right Impaired Impairments R knee flexion: ~ 70 deg Strength Lower Extremity Strength Assessment Right Impaired Hip 4-/5 Knee 3+/5 Coordination Assessment Gross Coordination Gross Coordination WNL Sensation Assessment Sensation Gross Sensation Right LE Impaired,Left LE Impaired Light Touch Impaired Proprioception (Position) Impaired Sensation Description Numbness Muscle Tone Muscle Tone WNL Yes M6 PT-IP Treatment Start: 02/22/20 16:24 Freq: NEEDED Status: Active Protocol: Document 02/22/20 14:49 AB (Rec: 02/22/20 16:41 AB [id number]) Physical Therapy Treatment Education Education Provided Precautions,Weight Bearing Status,Post-Op Packet,Safety M7 PT-IP Assessment and Plan Start: 02/22/20 16:24 Freq: NEEDED Status: Active Protocol: Document 02/22/20 14:49 AB (Rec: 02/22/20 16:41 AB [id number]) PT Summary Assessment and Plan Potential Rehabilitation Potential Good Status of Condition at Evaluation Evolving Summary Impairments Pain,ROM,Strength,Balance, Coordination,Sensation,Tone, Cognition,Bed Mobility, Transfers,Gait,Activity Tolerance Assessment Summary pt requiring mod A with mobility and has not gotten full sensation back on BLE affecting transfers and ambulation. pt just had surgery this morning and will likely progress with mobility during hospital stay. pt plans to go home with her sister to assist her. will conduct caregiver training when meeded. will assess progress. Goals Bed Mobility Goal Independent Transfer Goal Independent,Front Wheeled Walker Gait Goal Independent,Front Wheel Walker Gait Distance 150 Days to Meet Goals 5 Frequency of Treatment Frequency Of Treatment Twice a Day Treatment Plan Physical Therapy Treatment Plan Bed Mobility Training,Transfer Training,Gait Training, Therapeutic Exercise,Balance Retraining,Post Op Education, Discharge Planning,Hot or Cold Pack,Neuromuscular Re-ed, Coordination Retraining,Manual Therapy Other Recommendations and Next Treatment ambulation, caregiver training Focus when needed Recommendations To Nursing Amount of Assist Needed 1 Person Assist Discharge Recommendations PT Discharge Recommendations Home with Assistance, Outpatient PT Transportation Needs at Discharge Private Vehicle
[2020-02-22] MEDS: ROPINIROLE 0.25 MG TABLET 0.5 MG PO ×3 (15:20→23:30)
[2020-02-22] MEDS: diphenhydrAMINE 25 MG TABLET 50 MG PO (15:20)
[2020-02-22] MEDS: CEFAZOLIN 2 GM/100 ML FROZ.PIGGY IV (17:06)
[2020-02-22] MEDS: DOCUSATE 100 MG CAPSULE PO (20:24)
[2020-02-22] MEDS: ASPIRIN EC 81 MG TABLET PO (20:24)
[2020-02-23] MEDS: LACTATED RINGERS 1,000 ML 100 ML IV (00:02)
[2020-02-23] MEDS: IBUPROFEN 400 MG TABLET PO ×3 (00:51→08:29)
[2020-02-23] MEDS: CEFAZOLIN 2 GM/100 ML FROZ.PIGGY IV (02:30)
[2020-02-23 04:45] VITALS: BP 132/65; PULSE 67; RESP 18; TEMP 36.5; O2SAT 97
[2020-02-23 06:25] LABS: Hematocrit 23.7 % (36-46); Hemoglobin 8.7 g/dL (12.0-16.0)
[2020-02-23] MEDS: HYDROCODONE/ACET 5/325 TABLET 2 TAB PO (06:39)
--- NOTE | 2020-02-23 06:54 | PM.PNPO.1 ---
Subjective Subjective Date Patient Seen: 02/23/20 Time Patient Seen: 06:54 Interval history: Patient is postop day 1 the patient is postop day 1 right total knee arthroplasty. She is doing very well this morning. She has been up twice. Pain is under control. Exam Vital Signs (past 8 hours): - 02/22/20 23:50 02/23/20 04:45 Temperature 97.0 F L 97.7 F Pulse Rate 71 67 Respiratory Rate 18 18 Blood Pressure 124/63 132/65 Pulse Oximetry 99 97 Oxygen Delivery Method Room Air Oxygen Flow Rate 0 Narrative Exam Narrative: The dressing is intact. There is expected swelling. The leg is neurovascularly intact. Objective Labs Result Diagrams: 02/23/20 06:00 Labs: Laboratory Results - last 24 hr 02/23/20 06:00 Hgb 8.7 L Hct 23.7 L Assessment & Plan Post-op Postoperative Procedures: Procedures Operation Date: 02/22/20 09:45 Actual Procedures Side Surgeon p Total Knee Arthroplasty Right Levon Hardy MD Postoperative day: 1 Postoperative status narrative: The patient is progressing as expected postop day 1 total knee arthroplasty. Will discharge to home today. [facility] Protocol. Daily knee range of motion exercises at home. Will start physical therapy within the next week. May leave dressing on for 7-14 days if intact. May shower over dressing. Follow up in 2 weeks. Time Spent With Patient Time with patient: less than 15 minutes Quality VTE Deep Vein Thrombosis/Pulmonary Embolism Present on Admission: No
[2020-02-23 08:00] VITALS: BP 138/73; PULSE 68; RESP 18; TEMP 36.5; O2SAT 99
[2020-02-23] MEDS: DOCUSATE 100 MG CAPSULE PO (08:28)
[2020-02-23] MEDS: CHLORTHALIDONE 25 MG TABLET 50 MG PO (08:28)
[2020-02-23] MEDS: ASPIRIN EC 81 MG TABLET PO (08:28)
[2020-02-23] MEDS: LOVASTATIN 20 MG TABLET 40 MG PO (08:29)
[2020-02-23] MEDS: PANTOPRAZOLE 20 MG TABLET PO (08:29)
[2020-02-23] MEDS: TOLTERODINE LA 2 MG CAP PO (08:29)
[2020-02-23 08:30] VITALS: BP 138/73; PULSE 68
[2020-02-23] MEDS: lisinopriL 10 MG TABLET PO (08:30)
--- NOTE | 2020-02-23 09:26 | PT.IPTN ---
Current Diagnoses Primary osteoarthritis, right shoulder (02/22/20) Presence of right artificial shoulder joint (02/22/20) Surgery Performed Operation Date: 02/22/20 09:45 Actual Procedures p Total Knee Arthroplasty(Right) - Levon Hardy MD Physical Therapy Treatment Note M2 PT-IP Current Condition Start: 02/22/20 16:24 Freq: NEEDED Status: Discharge Protocol: Document 02/22/20 14:49 AB (Rec: 02/22/20 16:41 AB [id number]) Physical Therapy Current Condition Current Condition Evaluation Date 02/22/20 Treatment Diagnosis s/p R TKA; difficulty in walking Onset Date Weight Bearing Status Weight Bearing Status Weight Bear as Tolerated Allowed Weight Bearing Amount (enter % RLE WBAT or #) (%) M3 PT-IP Subjective Start: 02/22/20 16:24 Freq: NEEDED Status: Discharge Protocol: Document 02/23/20 09:26 AB (Rec: 02/23/20 12:01 AB [email or web address]) Subjective Physical Therapy Visit Type Type Treatment Note Visit Start Time 09:26 Visit Stop Time 09:50 Total Visit Minutes 24 Number of CLINICAL NURSE LEADER Visits 0 Physical Therapy Visit Comments Patient Comments pt is agreeable to do PT Therapy Pain Assessment Pain When Pain Assessed At Rest Pain Present Pain Present Pain Reported Location Right knee Intensity 4 Scale Used Numeric (0 - 10) Pain Management Techniques Modification of Treatment,Re- positioning,Timing of Activity with Medications M4 PT-IP Mobility and Gait Start: 02/22/20 16:24 Freq: NEEDED Status: Discharge Protocol: Document 02/23/20 09:26 AB (Rec: 02/23/20 12:01 AB [id number]) PT-Bed Mobility Assessment Supine to Sit Supine to Sit Standby Assistance Sit to Supine Sit to Supine Standby Assistance PT-Transfer Assessment Equipment Transfer Assistive Device Gait Belt,Front Wheeled Walker Orthotic/Prosthetic Devices or Brace: No Transfers Transfer Destination Chair Transfer Technique ambulated using FWW Transfer Ability Level of Assist Standby Assistance,1 Person Assistance,Use of Upper Extremities Comments Mobility Comments completed supine to sit SBA, sit to stand SBA and ambulated using FWW. agreed to sit up on chair afterwards. positioned on chair. call light and table placed within reach. informed nurse regarding pt's mobility and d/ c plan. Gait Assessment Gait Gait Assistance Required: Standby Assistance,1 Person Assist Distance (Feet) 125 Able to Maintain Weight Bearing Status Yes During Gait Assistive Devices Assistive Device Gait Belt,Front Wheeled Walker Orthotic/Prosthetic Devices or Brace: No Gait Deviations General Gait Pattern Antalgic,Decreased Stride Length,Decreased Feet Clearance Factors Limiting Gait Function Factors Limiting Gait Function Decreased Activity Tolerance, Decreased Strength,Pain,Poor Balance M5 PT-IP Objective Assessments Start: 02/22/20 16:24 Freq: NEEDED Status: Discharge Protocol: Document 02/22/20 14:49 AB (Rec: 02/22/20 16:41 AB [id number]) Orientation Orientation/Cognition Level of Alertness Alert Orientation Place,Situation Safety Awareness Decreased Safety Awareness Gross Range of Motion Lower Extremity ROM Assessment Right Impaired Impairments R knee flexion: ~ 70 deg Strength Lower Extremity Strength Assessment Right Impaired Hip 4-/5 Knee 3+/5 Coordination Assessment Gross Coordination Gross Coordination WNL Sensation Assessment Sensation Gross Sensation Right LE Impaired,Left LE Impaired Light Touch Impaired Proprioception (Position) Impaired Sensation Description Numbness Muscle Tone Muscle Tone WNL Yes M6 PT-IP Treatment Start: 02/22/20 16:24 Freq: NEEDED Status: Discharge Protocol: Document 02/23/20 09:26 AB (Rec: 02/23/20 12:01 AB [id number]) Physical Therapy Treatment Exercises Exercises Heel Slides Education Education Provided Precautions,Weight Bearing Status,Safety M7 PT-IP Assessment and Plan Start: 02/22/20 16:24 Freq: NEEDED Status: Discharge Protocol: Document 02/23/20 09:26 AB (Rec: 02/23/20 12:01 [id number]) PT Summary Assessment and Plan Potential Rehabilitation Potential Excellent Summary Impairments Pain,ROM,Strength,Balance,Bed Mobility,Transfers,Gait, Activity Tolerance Progress Towards Goals Progressing Toward Goals Assessment Summary pt is doing well with mobility and plans to go home today. pt will have her sister to assist her at home. pt may go home when medically stable. Goals Bed Mobility Goal Independent Transfer Goal Independent,Front Wheeled Walker Gait Goal Independent,Front Wheel Walker Gait Distance 150 Days to Meet Goals 5 Frequency of Treatment Frequency Of Treatment Twice a Day Treatment Plan Physical Therapy Treatment Plan Bed Mobility Training,Transfer Training,Gait Training, Therapeutic Exercise,Balance Retraining,Post Op Education, Discharge Planning,Hot or Cold Pack,Neuromuscular Re-ed, Coordination Retraining,Manual Therapy Other Recommendations and Next Treatment ambulation, caregiver training Focus when needed Recommendations To Nursing Amount of Assist Needed 1 Person Assist Discharge Recommendations PT Discharge Recommendations Home with Assistance, Outpatient PT Transportation Needs at Discharge Private Vehicle
--- NOTE | 2020-02-23 10:12 | PC.NURSE ---
Day shift discharge note: Patient discharged home per MD order and PT clearance. Discussed importance of F/U with Ortho in 10-14 days, appt already made, x/sx of infection, medications, and activity. Verbalized understanding of instructions. Discharged home in stable condition, via private vehicle with Aunt Waleska.
== END 2020-02-23 11:00 | disposition home or self-care (01) ==
LOC: OR 08:33 → AC 10:29
PROVIDERS: Family Provider Family Medicine; PCP Family Medicine; Referring Provider Orthopaedic Surgery; Visit Provider Orthopaedic Surgery
PROC: 0SRC0JZ Replacement of Right Knee Joint with Synthetic Substitute, Open Approach (ICD-10-PCS; CPT 27447; principal; 2020-02-22 09:45)
DX: M17.11 Unilateral primary osteoarthritis, right knee (principal); K21.9 Gastro-esophageal reflux disease without esophagitis; G25.81 Restless legs syndrome; I10 Essential (primary) hypertension; E78.5 Hyperlipidemia, unspecified
CPT/HCPCS: 27447; 36415; 73560; 85014; 85018; 97116; 97162; 97530; C1776; C9290; J0690; J1100; J2274; J2405; J2704